=== PATIENT | male | born 1970 | race Hispanic/Latino ===

== ENCOUNTER 2017-09-21 15:31 | Emergency (ER) | payer OTHER ==
[~2017-09-21] VITALS: Ht 177.8 cm; Wt 81.6 kg
[2017-09-21 16:00] LABS: ABSOLUTE BASOPHIL COUNT 0 /CUMM (0.0-0.2); ABSOLUTE EOSINOPHIL COUNT 0.1 /CUMM (0.0-0.7); ABSOLUTE GRANULOCYTE CT 6.4 /CUMM (1.4-6.5); ABSOLUTE LYMPH COUNT 1.8 /CUMM (1.2-3.4); ABSOLUTE MONOCYTE COUNT 0.8 /CUMM (0.10-0.60); BASOPHIL % 0.5 % (0.0-2.0); GRANULOCYTE % 69.9 % (42.2-75.2); HEMATOCRIT 49.6 % (42-52); MEAN CORPUSCULAR HGB CONC 34.3 G/DL (33.0-37.0); MEAN CORPUSCULAR VOLUME 84.6 FL (80.0-94.0); MEAN PLATELET VOLUME 8.2 FL (7.4-10.4); PLATELET COUNT 242 /CUMM (130-400); RBC DISTRIBUTION WIDTH 12.6 % (11.5-14.5); RED BLOOD CELL CT 5.86 /CUMM (4.70-6.10); WHITE BLOOD CELL COUNT 9.1 /CUMM (4.8-10.8)
--- NOTE | 2017-09-21 16:15 | RADIOLOGY REPORT ---
EXAMINATION: XR CHEST CLINICAL INFORMATION: Chest pain COMPARISON: None TECHNIQUE: 2 views of the chest were obtained. FINDINGS: The lungs are well-inflated. Minimal linear opacity of scarring or atelectasis in the lingula. Trachea is midline in position. No evidence of interstitial disease, focal consolidation, mass, pneumothorax or pleural effusion. The cardiomediastinal silhouette and pulmonary gomez have normal size and contour. Bones are unremarkable. The examined upper abdomen is normal. IMPRESSION: No acute cardiopulmonary findings.
--- NOTE | 2017-09-21 16:18 | CT SCAN REPORT ---
EXAMINATION: CT HEAD WITHOUT CONTRAST CLINICAL INFORMATION: Headache. COMPARISON: None TECHNIQUE: Contiguous axial imaging was performed from the skull base to vertex without intravenous administration of contrast. DLP: 621.17 mGy-cm FINDINGS: There is no evidence of acute intracranial hemorrhage or territorial infarction. No abnormal mass effect or midline shift is seen. Bailey to white matter differentiation is well preserved. No extra-axial fluid collections are identified. The ventricles are normal in size. There is no abnormal attenuation within the brain parenchyma. The osseous structures and soft tissues are normal. The mastoid air cells and visualized portions of the paranasal sinuses are well aerated. IMPRESSION: No acute intracranial pathology.
--- NOTE | 2017-09-21 18:52 | ED INFLUENZA/URI COMPLAINT ---
History of Present Illness General Chief Complaint: General Adult Stated Complaint: SEVERE LARA,DIZZINESS,FATIQUE,CONGESTION,NAUSEA Source: patient Exam Limitations: no limitations Vital Signs & Intake/Output Vital Signs & Intake/Output Vital Signs Date Time Temp Pulse Resp B/P B/P Pulse O2 O2 Flow FiO2 Mean Ox Delivery Rate 09/21 1636 98.5 88 18 169/115 99 Room Air Room Air 09/21 1539 98.4 89 18 164/120 98 Room Air Allergies Coded Allergies: NO KNOWN ALLERGIES (09/21/17) Triage Note: 47 YO MALE TO TRIAGE C/O NAUSEA/DIZZINESS/HEADACHES SINCE SUNDAY. STATES HE HAS BEEN UNDER ALOT OF STRESS. STATES HE TOOK A OXYCODONE AND MUSCLE RELAXOR TO HELP RELIEVE HIS HEADACHE BUT IT DIDNT HELP. PT WENT TO URGENT CARE TODAY AND HIS BP WAS HIGH SO THEY ADVISED HIM TO COME HERE FOR EVAL. PT STATES NO HX OF HTN. DENIES CHEST PAIN AT THIS TIME. Triage Nurses Notes Reviewed? yes HPI: Patient presents for evaluation of a headache and dizziness fatigue and nasal congestion. Patient states he's been under stress since Sunday and that was about the same time that he began having his headache. His headache is a sharp occipital headache that gets worse with head movement. He states he is also feeling dizzy and fatigued and began having nasal congestion yesterday. He does feel nauseous occasionally. He contacted his primary care doctor today and was told to go to an emergency department or walk-in center. He was seen at a walk- in clinic and they noted an increased blood pressure (patient denies history of hypertension) and asked him to go to emergency department. Past History Travel History Traveled to [place] past 21 day No Medical History Any Pertinent Medical History? see below for history Neurological: NONE EENT: NONE Cardiovascular: NONE Respiratory: NONE Gastrointestinal: NONE Hepatic: NONE Renal: NONE Musculoskeletal: NONE Psychiatric: NONE Endocrine: NONE Blood Disorders: NONE Cancer(s): NONE AVAYA ENGINEER/Reproductive: NONE Surgical History Surgical History: non-contributory Psychosocial History What is your primary language Pakistani Tobacco Use: Never used Family History Hx Contributory? No Review of Systems Review of Systems Constitutional: Reports: no symptoms. EENTM: Reports: see HPI. Respiratory: Reports: no symptoms. Cardiovascular: Reports: no symptoms. GI: Reports: no symptoms. Genitourinary: Reports: no symptoms. Musculoskeletal: Reports: no symptoms. Skin: Reports: no symptoms. Neurological/Psychological: Reports: headache. Hematologic/Endocrine: Reports: no symptoms. Immunologic/Allergic: Reports: no symptoms. All Other Systems: Reviewed and Negative Physical Exam Physical Exam Ears, Nose, Throat: SEE BELOW Comments: Gen.: Well-nourished, well-developed, no acute respiratory distress. Appears moderately uncomfortable secondary to headache and nasal congestion. Head: Normocephalic, atraumatic. Eyes: Normal inspection bilaterally, PERRLA, EOMI Ears: Normal inspection bilaterally Nose: Normal inspection (patient sounds congested) Throat/mouth : Moist mucosa Neck: Supple, full range of motion, no goiter, no carotid bruits, equal carotid pulses, no Kernig or Brudzinski signs Heart: Regular rate and rhythm, no murmurs rubs or gallops Lungs: Clear to auscultation bilaterally with normal air entry Chest: Nontender Back: Normal range of motion Abdomen: Nondistended, normal bowel sounds Extremities: Normal range of motion grossly, equal radial pulses, no cyanosis clubbing or edema, equal hand grasp, no pronator drift, no dysmetria Neurologic: Cranial nerves 2 through 12 intact, speech is clear and without apparent aphasia, gait is stable Skin: warm and dry Psychiatric: Calm, cooperative, no apparent delusions or hallucinations Core Measures Sepsis Present: No Sepsis Focused Exam Completed? No Progress Differential Diagnosis: influenza, meningitis, pneumonia, sinusitis Plan of Care: Orders Procedure Date/time Status TROPONIN LEVEL 09/21 1540 Complete COMPREHENSIVE METABOLIC PANEL 09/21 1540 Complete CBC WITHOUT DIFFERENTIAL 09/21 1540 Complete EKG 09/21 1540 Active Laboratory Tests 09/21/17 1548: Anion Gap 12, Estimated GFR > 60, BUN/Creatinine Ratio 14.0, Glucose 102 H, Calcium 9.5, Total Bilirubin 0.6, AST 33, ALT 44, Alkaline Phosphatase 67, Troponin I < 0.01, Total Protein 7.7, Albumin 4.3, Globulin 3.4, Albumin/ Globulin Ratio 1.3, CBC w Diff NO MAN DIFF REQ, RBC 5.86, MCV 84.6, MCH 29.0, MCHC 34.3, RDW 12.6, MPV 8.2, Gran % 69.9, Lymphocytes % 19.6 L, Monocytes % 9.0, Eosinophils % 1.0, Basophils % 0.5, Absolute Granulocytes 6.4, Absolute Lymphocytes 1.8, Absolute Monocytes 0.8 H, Absolute Eosinophils 0.1, Absolute Basophils 0 Initial ED EKG: NSR, rate (88) Prior EKG: unchanged Comments: 09/21/2017 6:47:38 PM ADINA is feeling better after medications. He feels good enough to return home. He states that he has had prior muscle tension headaches that occur in the same area and feels similarly but never this intense. We have discussed the possibility of a tension headache given his stress levels recently. In addition we discussed the possibility of a viral syndrome given his nasal congestion and nausea. Given the lack of meningismus I do not feel this patient is suffering from bacterial meningitis. CAT scan reveals no indication of sinusitis. I feel this patient is stable for outpatient symptomatic management. Departure Departure Disposition: HOME OR SELF CARE Condition: Stable Clinical Impression Primary Impression: Muscle tension headache Secondary Impressions: Nasal congestion Referrals: Lonnie Dsouza MD (PCP/Family) Additional Instructions: Ibuprofen 600 mg every 6 hours as needed for your headache pain. You may add Tylenol in between doses if needed. Phenergan as needed for nausea or vomiting. Follow-up with your primary care physician on Sunday for reevaluation. Return if any concerns or sudden worsening. Please note that there might be incidental findings in your evaluation that are unrelated to the current emergency department visit. Please notify your primary care doctor about this emergency department visit in order to obtain and review all of the testing performed so that these incidental findings can be monitored as needed. If you had an x-ray performed, please understand that some fractures or other findings may not be seen on the initial set of x-rays. If your symptoms persist you might need a repeat set of x-rays to check for such a fracture. If you had a laceration evaluated, please understand that foreign bodies such as glass or wood may not be visible to the naked eye or on plain x-rays. If the wound becomes red, swollen, increasingly more painful or if there is any drainage from the wound, please have it reevaluated by a physician for the possibility of a retained foreign body. If you're unable to follow up as outlined in the discharge instructions please return to the emergency department. Thank you for choosing the [facility] for your care. It was a pleasure to serve you today. Kenny Valerio M.D. [facility] Departure Forms: Customer Survey General Discharge Information Prescriptions: Current Visit Scripts Promethazine HCl 1 TAB PO Q6P PRN NAUSEA/VOMITING #12 TAB
[2017-09-21] MEDS ORDERED: PROMETHAZINE HC25 M3 PO (18:53)
[2017-09-21 19:31] VITALS: BP 161/97
== END 2017-09-21 19:32 ==
LOC: ERH 15:31
PROVIDERS: Physician Assistant Medical
DX: G44.209 Tension-type headache, unspecified, not intractable (principal); R09.81 Nasal congestion
CPT/HCPCS: 71046; 93005; 93010; 96372; J1885